=== PATIENT | male | born 1995 | race Caucasian/White ===

== ENCOUNTER 2024-01-23 13:25 | Inpatient (IN) ==
[2024-01-23 14:09] LABS: ABS Lymphocytes 0.8 10^3/uL (1.0-4.8); ABS Monocytes 0.9 10^3/uL (0.0-1.1); ABS Neutrophils 11.4 10^3/uL (1.5-7.6); ABS Nucleated RBC 0.01 10^3/ul; Eosinophil % 0.2 %; Hematocrit 46.5 % (38-53); Hemoglobin 15.7 g/dL (13.2-16.3); Mean Corpuscular Hemoglobin 27.6 pg (27-33); Mean Corpuscular Hgb Conc 33.8 g/dL (31-36); Mean Corpuscular Volume 81.8 fL (80-97); Mean Platelet Volume 7.1 fL (7.5-11.2); Nucleated Red Blood Cells % 0.1 %/100WBC (0.0-0.8); Platelet Count 260 10^3/uL (150-450); Red Blood Count 5.69 10^6/uL (4.06-5.63); Red Cell Distribution Width 13.1 % (12-17); White Blood Count 13.1 10^3/uL (3.6-10.2)
[2024-01-23 14:18] LABS: INR 1.32 (0.83-1.13)
[2024-01-23] MEDS: Lactated Ringers 1000 ml BAG 1,000 ML IV ONE (14:18)
[2024-01-23 15:03] LABS: Albumin 4.5 g/dL (3.2-5.2); Albumin/Globulin Ratio 2.3 (1-3); Calcium 9.7 mg/dL (8.6-10.3); Creatinine, Serum 1.05 mg/dL (0.67-1.17); Potassium 3.7 mmol/L (3.5-5.0); Total Bilirubin 0.7 mg/dL (0.2-1.0); Total Protein 6.5 g/dL (6.4-8.9); eGFR CKD-EPI 99.2 (>60)
[2024-01-23] MEDS: Iohexol 350 (CONTRAST) 500 ML MDV IV ONE (15:50)
[2024-01-23 15:52] LABS: Urine Benzodiazepine Screen None Detected (None Detect); Urine Cannabinoids Screen None Detected (None Detect); Urine Opiates Screen None Detected (None Detect)
[2024-01-23 16:01] LABS: High Sensitivity Troponin 1 Hr 31 pg/mL (<20)
[2024-01-23 18:13] LABS: Urine Buprenorphine Screen None Detected (None Detect); Urine Fentanyl Screen None Detected (None Detect); Urine Hydrocodone Screen None Detected (None Detect)
[2024-01-23] MEDS ORDERED: Nicotine Lozenge mini 2 MG LOZNG.MINI MT PRN (22:00)
[2024-01-23] MEDS ORDERED: Nicotine GUM 2MG FRUIT FLAVOR PO PRN (22:00)
[2024-01-24] MEDS ORDERED: OLANZapine 5 mg TAB *ODT PO PRN (05:32)
[2024-01-24] MEDS: Nicotine PATCH 21 MG/24 HR PATCH TRANSDERM SCH (11:31)
[2024-01-24] MEDS: Vitamin THERAPEUTIC TAB PO SCH (11:31)
[2024-01-24 12:13] LABS: TSH Ultra Thyroid Stim Horm 1.56 mcIU/mL (0.34-5.60)
[2024-01-24 13:27] LABS: Urine Appearance Clear; Urine Bilirubin Negative (Negative); Urine Blood Negative (Negative); Urine Color Yellow; Urine Glucose Negative (Negative); Urine Ketones 3+ (Negative); Urine Nitrite Negative (Negative); Urine Protein 1+ (>=30 mg/dL) (Negative); Urine Specific Gravity 1.026 (1.002-1.030); Urine Urobilinogen 1+ (Negative); Urine pH 6.5 (5.0-8.0)
[2024-01-24 13:32] LABS: Urine Bacteria Absent /HPF (Absent); Urine Red Blood Cell Trace(0-2/hpf) /HPF (0-Trace); Urine Sperm Present /HPF (Absent); Urine White Blood Cell Absent /HPF (0-Trace)
[2024-01-24] MEDS: OLANZapine 10 mg TAB*ODT PO SCH (21:59)
[2024-01-27] MEDS: OLANZapine 5 mg TAB *ODT PO SCH (21:35)
[2024-01-27] MEDS: Al Hydrox/Mg Hydrox/Simet LIQ 30 ML UDC PO PRN (21:41)
[2024-02-01 12:40] VITALS: BP 133/74
== END 2024-02-01 13:30 | disposition home or self-care (01) | DRG 751 ==
LOC: ED 13:25 → BSU 20:39 → ED 21:12 → BSU 01-26 20:49
PROVIDERS: ADMIT Psychiatry & Neurology Psychiatry; ATTEND Psychiatry & Neurology Psychiatry